=== PATIENT | female | born 1995 | race African-American/Black ===

== ENCOUNTER 2019-05-29 11:20 | Emergency (ER) | payer SELFPAY ==
[~2019-05-29] VITALS: Ht 165.1 cm; Wt 54.5 kg
[2019-05-29 11:25] VITALS: Ht 165.1 cm; Wt 54.5 kg
[2019-05-29 11:47] LABS: BASOPHILS 0.1 % (0-2); EOSINOPHILS 0.3 % (0-7); HEMATOCRIT 39.5 % (36.0-48.0); HEMOGLOBIN 13.2 g/dL (12-16); IMMATURE GRANULOCYTES 0.4 % (0-5); LYMPHOCYTES 16.2 % (15-50); MCH 29.3 pg (26.0-34.0); MCHC 33.4 g/dL (31.0-37.0); MCV 87.6 fL (80.0-100.0); MEAN PLATELET VOLUME 10.4 fL (7.4-10.4); MONOCYTES 6.5 % (2-11); NEUTROPHILS 76.5 % (40-80); PLATELET COUNT 237 10x3/uL (130-400); RBC 4.51 10x6/uL (4.00-5.40); RDW 12.7 % (11.5-14.5); WBC 18.6 10x3/uL (4.8-10.8)
[2019-05-29 11:57] LABS: ALBUMIN 3.6 g/dL (3.4-5.0); ALKALINE PHOSPHATASE 80 U/L (46-116); ALT (SGPT) 16 U/L (10-68); BILIRUBIN - TOTAL 0.78 mg/dL (0.2-1.3); CALC OSMOLALITY 269 mosm/kg (275-300); CALCIUM 8.6 mg/dL (8.5-10.1); CARBON DIOXIDE 23.8 mmol/L (21.0-32.0); CHLORIDE - SERUM 100 mmol/L (98-107); CREATININE - SERUM 0.8 mg/dL (0.6-1.3); GLUCOSE 74 mg/dL (74-106); POTASSIUM - SERUM 3.3 mmol/L (3.5-5.1); PROTEIN - SERUM 7.9 g/dL (6.4-8.2); SODIUM 136 mmol/L (136-145); UREA NITROGEN 9 mg/dL (7-18); eGFR NON AFRICAN AMERICAN > 90 mL/min (90-120)
[2019-05-29 12:00] LABS: HCG SERUM NEGATIVE (NEGATIVE)
[2019-05-29 13:21] LABS: APPEARANCE CLOUDY (CLEAR); BILIRUBIN NEGATIVE (NEGATIVE); COLOR YELLOW (YELLOW); GLUCOSE NEGATIVE (NEGATIVE); KETONE LARGE mg/dL (NEGATIVE); NITRITE NEGATIVE (NEGATIVE); PROTEIN 1+ mg/dL (NEGATIVE); UROBILINOGEN NORMAL (NORMAL)
[2019-05-29 13:22] LABS: WHITE CELLS - URINE 25-50 /hpf (NEGATIVE)
[2019-05-29 13:23] LABS: BACTERIA MODERATE /hpf (NEGATIVE); RED CELLS - URINE 0-5 /hpf (0-5)
[2019-05-29 13:24] LABS: MUCUS <1+ /lpf (NONE SEEN)
[2019-05-29] MEDS ORDERED: ROBAXIN500 MG PO (15:40)
[2019-05-29] MEDS ORDERED: AUGMENTIN 875-11 TAB PO (15:40)
[2019-05-29 16:52] VITALS: BP 103/47
== END 2019-05-29 16:52 | disposition home or self-care (01) ==
LOC: D.ER 11:20
PROVIDERS: Emergency Medicine
DX: N39.0 Urinary tract infection, site not specified (principal); R51 Headache

== ENCOUNTER 2020-02-21 08:14 | Emergency (ER) | payer SELFPAY ==
[~2020-02-21] VITALS: Ht 160 cm; Wt 61.4 kg
[~2020-02-21 08:14] MED LIST: AUGMENTIN 875-11 TAB PO; ROBAXIN500 MG PO; ZOVIRAX200 MG PO
[2020-02-21 08:18] VITALS: Ht 160 cm; Wt 61.4 kg
[2020-02-21] MEDS ORDERED: IPRATROPIUM BRO15 M1 NASAL (09:12)
[2020-02-21 09:59] VITALS: BP 111/73
== END 2020-02-21 10:00 | disposition home or self-care (01) ==
LOC: D.ER 08:14
DX: R09.81 Nasal congestion (principal); R05 Cough; R19.7 Diarrhea, unspecified; R50.9 Fever, unspecified; R51 Headache